=== PATIENT | female | born 1990 | race Caucasian/White ===

== ENCOUNTER 2016-11-07 12:40 | Emergency (ER) | payer MEDICAID ==
[~2016-11-07] VITALS: Wt 65.0 kg
--- NOTE | 2016-11-07 16:47 | RADRPT ---
PROCEDURE: Ultrasound of the left lower extremity venous system. CLINICAL INDICATION: Left leg pain and swelling, deep venous thrombosis TECHNIQUE: Bhat scale with and without compression, color doppler, spectral doppler of the venous system of the left lower extremity was performed. Venous augmentation maneuvers were utilized. COMPARISON: No prior studies are available for comparison. FINDINGS: Common femoral vein: Patent. Superficial femoral vein: Patent. Popliteal vein: Patent. Calf veins: Patent. No soft tissue abnormalities are identified. IMPRESSION: No evidence of a deep vein thrombosis within the left lower extremity. RPTAT: AADD .Teofilo Chris MD, MD Date Time Electronically viewed and signed by .Teofilo Chris MD, MD on 11/07/2016 16:47 .B/
[2016-11-07] MEDS ORDERED: ACET500C5 PO (17:26)
[2016-11-07 17:44] VITALS: BP 115/59; PULSE 76; RESP 16
--- NOTE | 2016-11-21 19:49 | ERD ---
ER Documentation Chief Complaint Date/Time DATE: 11/21/16 TIME: 19:44 Chief Complaint LEFT LEG PAIN X 2 DAYS HPI This 18-year-old female presents with left posterior knee pain for last 2 days. ROS All systems reviewed and are negative except as per history of present illness. Medications Home Meds Active Scripts Acetaminophen* (Tylophen*) 500 Mg Capsule, 1 CAP PO Q6H Y for PAIN AND OR ELEVATED TEMP, #20 CAP Prov:RICA CLARK MD 11/07/16 Allergies Allergies: Coded Allergies: No Known Allergy (Verified , 08/05/10) PMhx/Soc Medical and Surgical Hx: pt denies Medical Hx, pt denies Surgical Hx Physical Exam Physical Exam Const: [] Alert, [id number] per Head: Atraumatic Eyes: Normal Conjunctiva ENT: Normal External Ears, Nose and Mouth. Neck: Full range of motion..~ No meningismus. Resp: Clear to auscultation bilaterally Cardio: Regular rate and rhythm, no murmurs Abd: Soft, non tender, non distended. Normal bowel sounds Skin: No petechiae or rashes Back: No midline or flank tenderness Ext: No cyanosis, or edema. Mild tenderness in the left posterior knee and calf. No significant swelling, deformities, erythema or warmth. No weakness or deficits. Neur: Awake and alert Psych: Normal Mood and Affect Procedures/MDM Left lower extremity Doppler shows no evidence of DVT. Patient has left leg pain of 2 days duration of uncertain etiology. May be musculoskeletal. There is no evidence of DVT, cellulitis, deficit or neurovascular compromise. She is advised to follow-up with her primary provider this week return to the ER for new or worsening symptoms. Departure Diagnosis: Primary Impression: Pain of left leg Condition: Stable Patient Instructions: Muscle Strain, Extremity Additional Instructions: NO HAY COAGULO HOY . PROBABLAMENTE MUSCULO. CHEQUE OTRO VEZ PARA MAS SIMPTOMAS O CON CARTER DOCTOR. RICA CLARK MD Nov 21, 2016 19:49
== END 2016-11-07 17:46 | disposition home or self-care (01) ==
LOC: FTE 12:40
DX: M25.562 Pain in left knee (principal)
CPT/HCPCS: 93971